=== PATIENT | male | born 1990 | race Caucasian/White ===

== ENCOUNTER 2018-06-08 13:29 | Emergency (ER) | payer OTHER ==
[~2018-06-08] VITALS: Ht 167.6 cm; Wt 72.6 kg
[~2018-06-08 13:29] MED LIST: ACETAMINOPHEN-1 EAC1 PO; ADHD; CEPHALEXIN 500500 M3 PO; FLEXERIL PO; IBUPROFEN 800800 M1 PO; MEDROLDOSEPACK PO; TESSALON PERLE100 MG PO; ULTRAM 50MG TAB50 MG PO; VENTOLIN17 GM INH; ZOFRAN4 MG PO; ZPAK PO
[2018-06-08 13:53] LABS: URINE BILIRUBIN NEGATIVE (Negative); URINE BLOOD NEGATIVE (Negative); URINE CLARITY CLEAR; URINE COLOR YELLOW; URINE GLUCOSE-RANDOM NEGATIVE (Negative); URINE KETONES NEGATIVE (Negative); URINE LEUKOCYTES 1+ (Negative); URINE NITRITE NEGATIVE (Negative); URINE PROTEIN NEGATIVE (Negative); URINE SPECIFIC GRAVITY 1.025 (1.005-1.030); URINE UROBILINOGEN 0.2 E.U./dl (0.2-1.0)
[2018-06-08 13:59] LABS: SQUAMOUS 0-3 Few /LPF (0-3)
[2018-06-08 14:00] LABS: BACTERIA 1-9 Few /HPF (None Seen); CASTS None Seen /LPF (None Seen); CRYSTALS None Seen /LPF (None Seen); MUCUS 0-3 Light strn/LPF (None Seen); URINE RBC 0-2 Rare /HPF (0-2)
[2018-06-08] MEDS ORDERED: CIPRO500 MG PO (14:19)
[2018-06-08 15:00] VITALS: BP 125/78
== END 2018-06-08 15:01 | disposition home or self-care (01) ==
LOC: M.ERS 13:29
PROVIDERS: Nurse Practitioner Family
DX: N39.0 Urinary tract infection, site not specified (principal)

== ENCOUNTER 2020-10-25 14:51 | Emergency (ER) | payer OTHER, MEDICAID ==
[~2020-10-25] VITALS: Ht 167.6 cm; Wt 81.7 kg
[~2020-10-25 14:51] MED LIST changes: +CIPRO500 MG PO
[2020-10-25] MEDS ORDERED: FLAGYL500 M1 PO (15:24)
[2020-10-25 15:39] VITALS: BP 120/75
== END 2020-10-25 15:39 | disposition home or self-care (01) ==
LOC: M.ERS 14:51
DX: Z20.2 Contact with and (suspected) exposure to infections with a predominantly sexual mode of transmission (principal); F17.210 Nicotine dependence, cigarettes, uncomplicated; Z88.8 Allergy status to other drugs, medicaments and biological substances; Z90.89 Acquired absence of other organs

== ENCOUNTER 2021-06-27 11:54 | Emergency (ER) | payer OTHER, MEDICAID ==
[~2021-06-27] VITALS: Ht 167.6 cm; Wt 77.1 kg
[~2021-06-27 11:54] MED LIST changes: +FLAGYL500 M1 PO
[2021-06-27 12:29] VITALS: BP 165/87
[2021-06-27] MEDS ORDERED: ZOLOFT 50 MG TA50 MG PO (12:32)
[2021-06-27] MEDS ORDERED: HYDROXYZINE PAM25 M1 PO (12:33)
[2021-06-27 13:08] LABS: INFLUENZA A ANTIGEN Negative (Negative); INFLUENZA B ANTIGEN Negative (Negative)
== END 2021-06-27 13:36 | disposition home or self-care (01) ==
LOC: M.ERS 11:54
PROVIDERS: Nurse Practitioner Psychiatric/Mental Health
DX: J06.9 Acute upper respiratory infection, unspecified (principal); Z20.822 Contact with and (suspected) exposure to COVID-19; F90.9 Attention-deficit hyperactivity disorder, unspecified type; F31.9 Bipolar disorder, unspecified; R42 Dizziness and giddiness; F17.210 Nicotine dependence, cigarettes, uncomplicated; Z79.899 Other long term (current) drug therapy; Z90.89 Acquired absence of other organs; Z88.8 Allergy status to other drugs, medicaments and biological substances